=== PATIENT | male | born 1980 | race Caucasian/White ===

== ENCOUNTER 2025-03-31 18:39 | Emergency (ER) | payer BC ==
[~2025-03-31 18:39] MED LIST: Iopamidol 300 61% 100 ML VIAL FS ONE
[2025-03-31 19:27] LABS: #Basophils 0.09 10x3/uL (0.0-0.2); #Eosinophils 0.12 10x3/uL (0.0-0.5); #Monocytes 0.83 10x3/uL (0.0-1.1); #Neutrophils 5.84 10x3/uL (1.5-8.4); %Basophils 0.9 % (0.0-2.0); %Eosinophils 1.2 % (0.0-6.0); %Lymphocytes 32.4 % (18.0-47.0); %Monocytes 8.1 % (0.0-10.0); %Neutrophils 57.0 % (40.0-75.0); Hematocrit 52.9 % (38.8-50.0); Hemoglobin 18.6 g/dL (13.5-17.5); Mean Corpuscular Hemoglobin 32.5 pg (27.0-33.0); Mean Corpuscular Volume 92.3 fL (81.2-95.1); Platelet Count 232 10x3/uL (150-450); Red Blood Cell (RBC) Count 5.73 10x6/uL (4.32-5.72); White Blood Cell (WBC) Count 10.24 10x3/uL (3.5-10.5)
[2025-03-31 19:41] LABS: ALT (SGPT) 23 U/L (Less than 45); AST (SGOT) 38 U/L (11-34); Albumin 3.1 g/dL (3.1-4.5); Alkaline Phosphatase 157 U/L (40-110); Anion Gap 15 mmol/L (10-20); BUN (Urea Nitrogen) 5 mg/dL (8.9-20.6); Bilirubin, Total 0.2 mg/dL (0.3-1.2); Calc. Creatinine Clearance 0 mL/min (70-130); Calcium 8.4 mg/dL (7.8-10.44); Carbon Dioxide 28 mmol/L (22-29); Chloride 103 mmol/L (98-107); Globulin 3.4 g/dL (2.4-3.5); Glucose 211 mg/dL (70-105); Lipase 13 U/L (8-78); Magnesium 2.1 mg/dL (1.6-2.6); Potassium 5.0 mmol/L (3.5-5.1); Sodium 141 mmol/L (136-145)
[2025-03-31 19:41] LABS: Actual Bicarbonate (HCO3v) 32.3 mEq/L (22-28); Analyzer IN Cardio CS ER; Base Excess 4.4 mEq/L (-2 - +2); Calcium, Ionized (venous) 1.08 mmol/L (1.16-1.32); Chloride (VBG) 102 mmol/L (98-106); Critical Notified By: CP.JL; Hematocrit-VBG 57 % (42.0-52.0); Hemoglobin (Hb) 19.4 g/dL (13.1-17.2); Potassium (VBG) 4.54 mmol/L (3.70-5.30); Puncture Site Other Site; RapidComm Collect By LAB; Sodium 144 mmol/L (133-146)
[2025-03-31] MEDS ORDERED: Cefepime 2 GM VIAL ONE (21:56)
[2025-03-31 21:59] LABS: Glucose, Urine (Dipstick) >=1000 mg/dL (Negative); Leukocyte 25 (Negative); Protein, Urine (Dipstick) 100 mg/dl (Neg-Trace); Specific Gravity, Urine 1.005 (1.005-1.030)
[2025-03-31 22:13] LABS: RBC/HPF 0-3 HPF (0-3)
[2025-03-31 22:14] LABS: Bacteria/HPF 2+ HPF (None Seen); CAUTI Indications for Culture Pelvic or flank pain
[2025-03-31 22:15] LABS: Urine Culture Reflex No No
[2025-03-31] MEDS ORDERED: Vancomycin 1.5 GRAM/300 ML BAG 1.5 GM in Premix 1 BAG IVPB SCH (22:15)
== END 2025-03-31 22:18 ==
LOC: CSHERS 18:39
DX: K61.0 Anal abscess (principal); L03.317 Cellulitis of buttock; E11.9 Type 2 diabetes mellitus without complications; F17.210 Nicotine dependence, cigarettes, uncomplicated
CPT/HCPCS: 36415; 36416; 70450; 74177; 80053; 81001; 82010; 82805; 83605; 83690; 83735; 84100; 85025; 93005; 94760; 96361; 96365; J0692; J3373